=== PATIENT | male | born 1965 | race American Indian/Alaskan Native ===

== ENCOUNTER 2021-07-24 00:28 | Inpatient (IN) | payer MEDICAID ==
--- NOTE | 2021-07-24 00:54 | Emergency Department Report ---
ED Chest Pain HPI - General Stated Complaint: CHEST PAIN Time Seen by Provider: 07/24/21 00:43 Source: patient, EMS - History of Present Illness Initial Comments: Patient is 55 years old morbidly obese male with history of hypertension and diabetes. Patient brought to the emergency room via EMS for evaluation of left- sided chest pain, pressure with no radiation. Patient stated the pain started approximately 1 hour ago waking him up from sleep. Patient denied any shortness of breath, fever or chills. No cough. EKG reviewed by me and sent to Dr. Perez, interventionalist on-call and stated that this is not a STEMI and advised to admit for chest pain work-up. MD Complaint: chest pain -: Sudden, hour(s) (1) Onset: during rest Pain Location: left chest Pain Radiation: none Severity scale (0 -10): 5 Quality: tightness - Related Data Allergies Allergy/AdvReac Type Severity Reaction Status Date / Time No Known Allergies Allergy Unverified 07/24/21 01:25 Heart Score - HEART Score History: Moderately suspicious EKG: Non-specific Age: 45-65 Risk factors: > 3 risk factors or hx of atherosclerotic disease Troponin: < normal limit HEART Score: 5 - EKG Read Time Time EKG Completed: 00:45 EKG Read Time: 00:45 - Critical Actions Critical Actions: 4-6 pts:12-16.6% risk of adverse cardiac event. Should be admitted ED Review of Systems ROS: Stated complaint: CHEST PAIN Other details as noted in HPI Comment: All other systems reviewed and negative Constitutional: denies: chills, fever Respiratory: denies: cough, shortness of breath, SOB with exertion, SOB at rest Cardiovascular: chest pain Gastrointestinal: denies: abdominal pain, nausea, vomiting, diarrhea, constipation, hematemesis Musculoskeletal: denies: back pain Neurological: denies: headache, weakness, numbness, paresthesias, confusion ED Physical Exam - General General appearance: alert, in no apparent distress - Head Head exam: Present: atraumatic, normocephalic, normal inspection - Eye Eye exam: Present: normal appearance - ENT ENT exam: Present: normal exam, normal orophraynx, mucous membranes moist - Neck Neck exam: Present: normal inspection, full ROM. Absent: tenderness, meningismus - Respiratory Respiratory exam: Present: normal lung sounds bilaterally - Cardiovascular Cardiovascular Exam: Present: regular rate, normal rhythm, normal heart sounds - GI/Abdominal GI/Abdominal exam: Present: soft, normal bowel sounds. Absent: distended, tenderness, guarding, rebound, rigid, organomegaly, mass, bruit, pulsatile mass, hernia - Extremities Exam Extremities exam: Present: normal inspection, full ROM, normal capillary refill - Back Exam Back exam: Present: normal inspection, full ROM. Absent: CVA tenderness (R), CVA tenderness (L) - Neurological Exam Neurological exam: Present: alert, oriented X3, CN II-XII intact - Psychiatric Psychiatric exam: Present: normal mood - Skin Skin exam: Present: warm, intact, normal color ED Medical Decision Making - Lab Data Result diagrams: 07/24/21 01:06 07/24/21 01:06 - EKG Data -: EKG Interpreted by Me EKG shows normal: sinus rhythm Rate: normal - EKG Data Interpretation: nonspecific ST-T wave melyssa - Radiology Data Radiology results: report reviewed - Medical Decision Making Patient is 55 years old morbidly obese male with history of hypertension and diabetes. Patient brought to the emergency room via EMS for evaluation of left- sided chest pain, pressure with no radiation. Patient stated the pain started approximately 1 hour ago waking him up from sleep. Patient denied any shortness of breath, fever or chills. No cough. EKG reviewed by me and sent to Dr. Perez, interventionalist on-call and stated that this is not a STEMI and advised to admit for chest pain work-up. Patient remained stable in the ER with a stable vital sign. He stated that his chest pain is much better now. Labs reviewed and is unremarkable including a negative troponin x1. Chest x-ray is unremarkable. I discussed the patient with Dr. Gee, he agreed to admit the patient to medical service for further management. Critical Care Time: Yes Critical care time in (mins) excluding proc time.: 35 Critical care attestation.: If time is entered above; I have spent that time in minutes in the direct care of this critically ill patient, excluding procedure time. ED Disposition Clinical Impression: Unstable angina Disposition: ADMITTED INPATIENT Is pt being admited?: Yes Condition: Stable Instructions: Angina, [id number]
--- NOTE | 2021-07-24 01:13 | XRay Report ---
Chest single view INDICATION: Dyspnea IMPRESSION: Cardiomegaly with mild bilateral interstitial edema. Signer Name: José Antonio Nichols MD Signed: 07/24/2021 1:09 AM Workstation Name: [id number]
[2021-07-24 01:37] LABS: Basophils % (Auto) 0.6 % (0.0-1.8); Eosinophils # (Auto) 0.3 K/mm3 (0.0-0.4); Eosinophils % (Auto) 4.3 % (0.0-4.3); Hematocrit 50.4 % (35.5-45.6); Lymphocytes # (Auto) 1.7 K/mm3 (1.2-5.4); Lymphocytes % (Auto) 21.2 % (13.4-35.0); Mean Corpuscular HGB Conc 32 % (32-34); Mean Corpuscular Volume 95 fl (84-94); Monocytes % (Auto) 12.5 % (0.0-7.3); Platelet Count 238 K/mm3 (140-440); Red Blood Count 5.28 M/mm3 (3.65-5.03); Red Cell Distribution Width 14.7 % (13.2-15.2)
[2021-07-24 01:49] LABS: INR 0.89 (0.87-1.13)
[2021-07-24 01:50] LABS: Partial Thromboplastin Time 25.3 Sec. (24.2-36.6)
[2021-07-24 02:02] LABS: BUN/Creatinine Ratio 16; Blood Urea Nitrogen 16 mg/dL (9-20); Hemolysis Index 56
[2021-07-24 02:04] LABS: Alanine Aminotransferase 25 units/L (7-56); Albumin 4.1 g/dL (3.9-5)
[2021-07-24 02:05] LABS: Bilirubin,Direct < 0.2 mg/dL (0-0.2)
[2021-07-24] MEDS: ASPIRIN 81 MG TAB CHEW PO ONE ×2 (02:10→02:12)
[2021-07-24] MEDS ORDERED: ACETAMINOPHEN 325 MG TAB PO PRN ×2 (02:40→03:30)
--- NOTE | 2021-07-24 02:58 | History and Physical Report ---
History of Present Illness Date of examination: 07/24/21 Date of admission: 07/24/2021 Chief complaint: Chest Pain History of present illness: 55-year-old -[place] male with significant history of hypertension, diabetes mellitus and morbid obesity presenting to the emergency room via EMS with complaint of chest pain. Chest pain was said to be left-sided and felt like pressure lasting for about an hour. Patient states she was sleeping and suddenly woke up with chest pain. He denies any nausea vomiting, no shortness of breath, no fever or chills, no headache or dizziness and no diaphoresis. Patient denies having this type of problem in the past however indicates that he had a stress test about 2 years ago at [facility] which was within normal limits. Work-up in the emergency room today, significant findings were that of hemoglobin of 16 and hematocrit of 50.4. Troponin, chest x-ray and EKG were unremarkable. Work-up findings were discussed with the car mover by the ER physician. Past History Past Medical History: diabetes, hypertension Past Surgical History: No surgical history Social history: no significant social history Family history: no significant family history Medications and Allergies Allergies Allergy/AdvReac Type Severity Reaction Status Date / Time No Known Allergies Allergy Unverified 07/24/21 01:25 Active Meds: Active Medications Acetaminophen (Acetaminophen 325 Mg Tab) 650 mg PO Q4H PRN PRN Reason: Pain MILD(1-3)/Fever >100.5/HODGSON Acetaminophen (Acetaminophen 325 Mg Tab) 650 mg PO Q6H PRN PRN Reason: Pain, Mild (1-3) Aspirin (Aspirin Ec 325 Mg Tab) 325 mg PO QDAY JAMES Dextrose (Dextrose 50% In Water (25gm) 50 Ml Syringe) 50 ml IV Q30MIN PRN; Protocol PRN Reason: Hypoglycemia Magnesium Hydroxide (Magnesium Hydroxide (Mom) Oral Liqd Udc) 30 ml PO Q4H PRN PRN Reason: Constipation Morphine Sulfate (Morphine 2 Mg/1 Ml Inj) 2 mg IV Q4H PRN PRN Reason: Pain, Moderate (4-6) Morphine Sulfate (Morphine 4 Mg/1 Ml Inj) 4 mg IV Q4H PRN PRN Reason: Pain , Severe (7-10) Morphine Sulfate (Morphine 4 Mg/1 Ml Inj) 2 mg IV Q5MIN PRN PRN Reason: Chest Pain unrelieved by NTG Nitroglycerin (Nitroglycerin 0.4 Mg Tab Subl) 0.4 mg SL Q5M PRN PRN Reason: Chest Pain Ondansetron HCl (Ondansetron 4 Mg/2 Ml Inj) 4 mg IV Q8H PRN PRN Reason: Nausea And Vomiting Sodium Chloride (Sodium Chloride 0.9% 10 Ml Flush Syringe) 10 ml IV BID JAMES Sodium Chloride (Sodium Chloride 0.9% 10 Ml Flush Syringe) 10 ml IV PRN PRN PRN Reason: LINE FLUSH Sodium Chloride (Sodium Chloride 0.9% 10 Ml Flush Syringe) 10 ml IV PRN PRN PRN Reason: LINE FLUSH Tramadol HCl (Tramadol 50 Mg Tab) 50 mg PO Q6H PRN PRN Reason: Pain, Moderate (4-6) Review of Systems Constitutional: no fever, no chills Ears, nose, mouth and throat: no nasal congestion, no sore throat Cardiovascular: chest pain, no palpitations Respiratory: no cough, no shortness of breath Gastrointestinal: no abdominal pain, no nausea, no vomiting, no diarrhea Genitourinary Male: no dysuria, no hematuria, no flank pain Musculoskeletal: no neck pain, no low back pain Integumentary: no rash, no pruritis Neurological: no headaches, no confusion Psychiatric: no anxiety, no depression Endocrine: no polyphagia, no polydipsia, no polyuria, no nocturia Exam - Constitutional Vitals: Temp Pulse Resp BP Pulse Ox 71 16 153/74 98 07/24/21 02:15 07/24/21 02:15 07/24/21 02:15 07/24/21 02:24 General appearance: Present: no acute distress, well-nourished, obese - EENT Eyes: Present: PERRL, EOM intact, irregular pupil. Absent: scleral icterus ENT: clear oral mucosa, dentition normal - Neck Neck: Present: supple - Respiratory Respiratory effort: normal Respiratory: bilateral: CTA - Cardiovascular Rhythm: regular Heart Sounds: Present: S1 & S2. Absent: gallop, systolic murmur, diastolic murmur, rub, click - Extremities Extremities: no ischemia, pulses intact, pulses symmetrical, No edema, normal temperature, normal color, Full ROM Peripheral Pulses: within normal limits - Abdominal General gastrointestinal: Present: soft, non-tender, non-distended, normal bowel sounds. Absent: mass - Integumentary Integumentary: Present: clear, warm, dry, normal turgor. Absent: rash - Musculoskeletal Musculoskeletal: strength equal bilaterally - Psychiatric Psychiatric: appropriate mood/affect, intact judgment & insight, memory intact, cooperative - Neurologic Neurologic: CNII-XII intact, no focal deficits, moves all extremities HEART Score - HEART Score History: Moderately suspicious EKG: Non-specific Age: 45-65 Risk factors: > 3 risk factors or hx of atherosclerotic disease Troponin: Troponin T < 0.010 ng/mL (0.00-0.029) 07/24/21 01:06 Troponin: < normal limit HEART Score: 5 - Critical Actions Critical Actions: 4-6 pts:12-16.6% risk of adverse cardiac event. Should be admitted Results - Labs CBC & Chem 7: 07/24/21 01:06 07/24/21 01:06 Labs: Abnormal lab results 07/24/21 Range/Units 01:06 RBC 5.28 H (3.65-5.03) M/mm3 Hgb 16.0 H (11.8-15.2) gm/dl Hct 50.4 H (35.5-45.6) % MCV 95 H (84-94) fl [place] % (Auto) 12.5 H (0.0-7.3) % [place] # (Auto) 1.0 H (0.0-0.8) K/mm3 Assessment and Plan - Patient Problems (1) Chest pain Current Visit: Yes Status: Acute Plan to address problem: Patient admitted and placed on telemetry. We will check serial cardiac enzymes. Patient started on aspirin, sublingual nitroglycerin and IV morphine as needed for chest pain. Await further evaluation by car mover (2) Diabetes mellitus Current Visit: Yes Status: Acute Plan to address problem: Patient placed on sliding scale insulin. We will monitor Accu-Cheks. (3) Hypertension Current Visit: Yes Status: Acute Plan to address problem: We will resume routine home medications and monitor vital signs closely. (4) Morbid obesity with BMI of 40.0-44.9, adult Current Visit: Yes Status: Acute Plan to address problem: Lifestyle modification encouraged. Dietary consult requested. (5) DVT prophylaxis Current Visit: Yes Status: Acute Plan to address problem: Patient placed on subcutaneous heparin. (6) Full code status Current Visit: Yes Status: Acute Plan to address problem: Patient is full code.
[2021-07-24] MEDS ORDERED: traMADol 50 MG TAB PO PRN (03:30)
[2021-07-24] MEDS ORDERED: MAGNESIUM HYDROXIDE (MOM) ORAL LIQD UDC PO PRN (03:30)
[2021-07-24] MEDS ORDERED: DEXTROSE 50% IN WATER (25GM) 50 ML SYRINGE IV PRN (03:30)
[2021-07-24] MEDS ORDERED: ONDANSETRON 4 MG/2 ML INJ IV PRN (03:30)
[2021-07-24] MEDS ORDERED: MORPHINE 4 MG/1 ML INJ IV PRN ×2 (03:30)
[2021-07-24] MEDS ORDERED: MORPHINE 2 MG/1 ML INJ IV PRN (03:30)
[2021-07-24] MEDS ORDERED: NITROGLYCERIN 0.4 MG TAB SUBL SL PRN (03:30)
[2021-07-24] MEDS ORDERED: REGADENOSON 0.4 MG/5 ML INJ IV ONE (08:25)
[2021-07-24] MEDS: INSULIN REGULAR, HUMAN 100 UNITS/1 ML SUB-Q SCH ×3 (11:05→21:53)
[2021-07-24] MEDS ORDERED: HEPARIN 10,000 UNITS/10 ML VIAL IV PRN (12:27)
[2021-07-24 12:31] LABS: Chol/HDL Ratio 3.72 %
[2021-07-24] MEDS ORDERED: HEPARIN/ 0.45% NACL DRIP 25,000 UNIT/500 ML BAG IV SCH ×2 (13:00→18:00)
--- NOTE | 2021-07-24 13:17 | Event Note ---
Date: 07/24/21 Patient seen and examined, positive troponin D/W CARDIOLOGY, STARTED ON HEPARIN DRIP
[2021-07-24] MEDS ORDERED: HEPARIN 10,000 UNITS/10 ML VIAL IV ONE (14:00)
[2021-07-24] MEDS: METOPROLOL TARTRATE 25 MG TAB PO SCH ×2 (14:07→21:45)
[2021-07-24] MEDS: HEPARIN/ 0.45% NACL DRIP 25,000 UNIT/500 ML BAG IV SCH (14:15)
[2021-07-24 15:44] LABS: Hematocrit 52.2 % (35.5-45.6); Hemoglobin 17.2 gm/dl (11.8-15.2)
[2021-07-24 15:58] LABS: INR 0.97 (0.87-1.13); Partial Thromboplastin Time 30.9 Sec. (24.2-36.6)
--- NOTE | 2021-07-24 16:21 | Consultation ---
History of Present Illness Consult date: 07/24/21 Requesting physician: LUISA PINEDA Consult reason: chest pain History of present illness: Chief complaint: Chest Pain This is a 55-year-old -Welsh male with past medical history significant for diabetes, hypertension, hyperlipidemia, sleep apnea (noncompliant with use of CPAP at night), and covid complications that required him to be defibrillated multiple times (per patient report), who presents to the emergency room with complaints of chest pain that began while sleeping around 10 PM last night. He describes the pain as aching and slight pressure. He rates the pain a 9 out of 10. He states the pain felt like food had gotten stuck/gas pains. The pain radiates slightly underneath his left breast and into his left armpit. The pain was constant last night, however patient reports that the pain has now subsided. Patient denies shortness of breath, palpitations, n/v/d, or lower extremity swelling. Patient has a history of smoking.This patient is unknown to our practice. Patient appears to be noncompliant with his medications. Cardiology was consulted for acute chest pain. Past History Past Medical History: diabetes, hypertension Past Surgical History: No surgical history Social history: no significant social history Family history: no significant family history Medications and Allergies Allergies Allergy/AdvReac Type Severity Reaction Status Date / Time No Known Allergies Allergy Unverified 07/24/21 01:25 Home Medications Medication Instructions Recorded Confirmed Last Taken Type AtorvaSTATin [Lipitor] 40 mg PO QHS 07/24/21 07/24/21 Unknown History Metoprolol Xl [Metoprolol 25 mg PO QDAY 07/24/21 07/24/21 Unknown History SUCCINATE ER TAB] Tamsulosin [Flomax] 0.4 mg PO QDAY 07/24/21 07/24/21 Unknown History lisinopriL [Lisinopril] 20 mg PO DAILY 07/24/21 07/24/21 Unknown History metFORMIN [Glucophage] 500 mg PO BID 07/24/21 07/24/21 Unknown History Active Meds: Active Medications Acetaminophen (Acetaminophen 325 Mg Tab) 650 mg PO Q4H PRN PRN Reason: Pain MILD(1-3)/Fever >100.5/HODGSON Aspirin (Aspirin Ec 325 Mg Tab) 325 mg PO QDAY JAMES Atorvastatin Calcium (Atorvastatin 40 Mg Tab) 40 mg PO QHS JAMES Dextrose (Dextrose 50% In Water (25gm) 50 Ml Syringe) 50 ml IV Q30MIN PRN; Protocol PRN Reason: Hypoglycemia Heparin Sodium (Porcine) (Heparin 10,000 Units/10 Ml Vial) 5,000 unit IV Q6H PRN PRN Reason: Anti-Xa Assay < 0.1 units/ml Sodium Chloride (Nacl 0.9% 500 Ml) 500 mls @ 50 mls/hr IV DIRECT JAMES Stop: 07/24/21 22:59 Heparin Sodium/Sodium Chloride (Heparin/ 0.45% Nacl-25,000 Unit/500 Ml) 25,000 unit in 500 mls @ 20 mls/hr IV TITRATE JAMES; Protocol Last Admin: 07/24/21 14:15 Dose: 1,000 units/hr, 20 mls/hr Insulin Human Regular (Insulin Regular, Human 100 Units/1 Ml) 0 units SUB-Q ACHS [facility]; Protocol Last Admin: 07/24/21 16:01 Dose: Not Given Magnesium Hydroxide (Magnesium Hydroxide (Mom) Oral Liqd Udc) 30 ml PO Q4H PRN PRN Reason: Constipation Metoprolol Tartrate (Metoprolol Tartrate 25 Mg Tab) 25 mg PO BID [facility] Last Admin: 07/24/21 14:07 Dose: 25 mg Morphine Sulfate (Morphine 2 Mg/1 Ml Inj) 2 mg IV Q4H PRN PRN Reason: Pain, Moderate (4-6) Morphine Sulfate (Morphine 4 Mg/1 Ml Inj) 4 mg IV Q4H PRN PRN Reason: Pain , Severe (7-10) Morphine Sulfate (Morphine 4 Mg/1 Ml Inj) 2 mg IV Q5MIN PRN PRN Reason: Chest Pain unrelieved by NTG Nitroglycerin (Nitroglycerin 0.4 Mg Tab Subl) 0.4 mg SL Q5M PRN PRN Reason: Chest Pain Ondansetron HCl (Ondansetron 4 Mg/2 Ml Inj) 4 mg IV Q8H PRN PRN Reason: Nausea And Vomiting Sodium Chloride (Sodium Chloride 0.9% 10 Ml Flush Syringe) 10 ml IV BID [facility] Last Admin: 07/24/21 11:00 Dose: 10 ml Sodium Chloride (Sodium Chloride 0.9% 10 Ml Flush Syringe) 10 ml IV PRN PRN PRN Reason: LINE FLUSH Tramadol HCl (Tramadol 50 Mg Tab) 50 mg PO Q6H PRN PRN Reason: Pain, Moderate (4-6) Review of Systems All systems: negative Cardiovascular: chest pain, no palpitations, no edema, no shortness of breath, no dyspnea on exertion, no paroxysmal nocturnal dyspnea, no leg edema Respiratory: no cough Gastrointestinal: no nausea, no vomiting Physical Examination Vital Signs Pulse Ox 99 07/24/21 00:46 General appearance: no acute distress HEENT: Positive: Normocephaly Cardiac: Positive: S1/S2 Lungs: Positive: Decreased Breath Sounds Neuro: Positive: Grossly Intact Abdomen: Positive: Soft, Active Bowel Sounds Male genitourinary: Positive: deferred Skin: Negative: Rash Extremities: Absent: edema Results 07/24/21 14:50 07/24/21 01:06 Cardiac Enzymes 07/24/21 Range/Units 01:06 AST 18 (5-40) units/L Coagulation 07/24/21 07/24/21 Range/Units 01:06 14:50 PT 13.0 14.0 (12.2-14.9) Sec. INR 0.89 0.97 (0.87-1.13) APTT 25.3 30.9 (24.2-36.6) Sec. Lipids 07/24/21 Range/Units 11:17 Triglycerides 92 (2-149) mg/dL Cholesterol 160 (50-199) mg/dL HDL Cholesterol 43 (40-59) mg/dL Cholesterol/HDL Ratio 3.72 % CBC 07/24/21 07/24/21 Range/Units 01:06 14:50 WBC 8.1 (4.5-11.0) K/mm3 RBC 5.28 H (3.65-5.03) M/mm3 Hgb 16.0 H 17.2 H (11.8-15.2) gm/dl Hct 50.4 H 52.2 H (35.5-45.6) % Plt Count 238 183 (140-440) K/mm3 Lymph # (Auto) 1.7 (1.2-5.4) K/mm3 Delta # (Auto) 1.0 H (0.0-0.8) K/mm3 Eos # (Auto) 0.3 (0.0-0.4) K/mm3 Baso # (Auto) 0.0 (0.0-0.1) K/mm3 Comprehensive Metabolic Panel 07/24/21 07/24/21 Range/Units 01:06 01:06 Sodium 143 (137-145) mmol/L Potassium 4.3 (3.6-5.0) mmol/L Chloride 105.1 (98-107) mmol/L Carbon Dioxide 23 (22-30) mmol/L BUN 16 (9-20) mg/dL Creatinine 1.0 (0.8-1.3) mg/dL Glucose 96 (75-100) mg/dL Calcium 9.0 (8.4-10.2) mg/dL Direct Bilirubin < 0.2 (0-0.2) mg/dL Indirect Bilirubin 0.1 mg/dL AST 18 (5-40) units/L ALT 25 (7-56) units/L Alkaline Phosphatase 69 (35-129) units/L Total Protein 7.3 (6.3-8.2) g/dL Albumin 4.1 (3.9-5) g/dL - Imaging and Cardiology Echo: report reviewed EKG: pending, image reviewed EKG interpretations - Telemetry EKG Rhythm: Sinus Rhythm - EKG Sinus rhythms and dysrhythmias: sinus rhythm Assessment and Plan Assessment NSTEMI Angina Hypertension Morbid obesity Hyperlipidemia Sleep apnea History of Covid-19 Cardiographics Initial EKG 07/24/2021 0032-sinus rhythm, rate 79. No acute ischemia per system administration advisor MD. Chest x-ray 07/24/21-cardiomegaly with mild bilateral interstitial edema Echocardiogram-left ventricle: There is mild global hypokinesis of the left ventricle. LVEF is 40 to 45%. Mild diastolic dysfunction is present (impaired relaxation pattern). Pericardium: There is no pericardial effusion. Stress test-final report pending Cath-plan for cath in a.m. Recommendations/plan: -Initial troponin was negative. However, subsequent troponin elevated to 0.259 -Echocardiogram report as above -Patient underwent nuclear Lexiscan MPI this morning. Final results pending. -Given the rise in troponins, in conjunction with chest pain and multiple cardiac risk factors, will plan for cardiac cath in the morning -We will initiate heparin drip per protocol -Check D-dimer -GDMT initiated to include: Aspirin 325 p.o. daily, atorvastatin 40 mg p.o. nightly, metoprolol 25 mg p.o. twice daily -N.p.o. after midnight -Consent obtained. All questions answered and addressed Thank you for this consultation, we will follow along Patient seen in conjunction with Dr. Bear who agrees with the assessment and management of this patient. - Patient Problems (1) NSTEMI (non-ST elevated myocardial infarction) Current Visit: Yes Status: Acute (2) Chest pain Current Visit: Yes Status: Acute (3) Diabetes mellitus Current Visit: Yes Status: Acute (4) Hypertension Current Visit: Yes Status: Acute (5) Morbid obesity with BMI of 40.0-44.9, adult Current Visit: Yes Status: Acute
[2021-07-24] MEDS: SODIUM CHLORIDE 0.9% 500 ML 500 ML IV SCH (21:45)
--- NOTE | 2021-07-25 04:20 | Treadmill Report ---
DATE OF SERVICE: 07/24/2021 NUCLEAR STRESS TEST REFERRING PHYSICIAN: Hospitalist. PROTOCOL: The patient was assessed in postabsorptive state, given 10 mCi of technetium at rest. The patient had rest imaging. The patient underwent Lexiscan stress test per standard protocol. At peak stress, the patient given 26 mCi technetium. Shortly thereafter, the patient had stress imaging. This is a technically difficult study due to body habitus. Raw imaging reveals mild GI artifact, no significant motion artifact. SPECT imaging examined carefully in horizontal long axis, vertical long axis and short axis views. Grossly, there is normal mitral uptake of radioisotope in all port segments. No evidence of a significant fixed or reversible perfusion defect suggestive of prior infarction or ischemia. Gated wall motion was low normal systolic performance, calculated ejection fraction of 53%. No TID. CONCLUSIONS: 1. Technically difficult study due to large body habitus, but grossly no evidence of a significant fixed or reversible perfusion defect suggestive of prior infarction or ischemia. 2. Normal left ventricular systolic performance without evidence of transient ischemic dilatation or stress-induced segmental wall motion abnormalities. TID: [id number] RECEIPT: [id number] SB/ASAD
[2021-07-25 04:52] LABS: Basophils # (Auto) 0.1 K/mm3 (0.0-0.1); Basophils % (Auto) 0.7 % (0.0-1.8); Eosinophils # (Auto) 0.4 K/mm3 (0.0-0.4); Eosinophils % (Auto) 4.4 % (0.0-4.3); Hematocrit 50.6 % (35.5-45.6); Hemoglobin 16.8 gm/dl (11.8-15.2); Lymphocytes # (Auto) 1.7 K/mm3 (1.2-5.4); Lymphocytes % (Auto) 20.8 % (13.4-35.0); Mean Corpuscular HGB Conc 33 % (32-34); Mean Corpuscular Volume 93 fl (84-94); Monocytes # (Auto) 0.9 K/mm3 (0.0-0.8); Monocytes % (Auto) 11.2 % (0.0-7.3); Platelet Count 264 K/mm3 (140-440); Red Blood Count 5.41 M/mm3 (3.65-5.03); Red Cell Distribution Width 14.7 % (13.2-15.2)
[2021-07-25 05:04] LABS: INR 0.9 (0.87-1.13)
[2021-07-25 05:05] LABS: Partial Thromboplastin Time 36.2 Sec. (24.2-36.6)
[2021-07-25 05:07] LABS: Blood Urea Nitrogen 11 mg/dL (9-20); Calcium 9.4 mg/dL (8.4-10.2); Hemolysis Index 4
[2021-07-25 05:08] LABS: BUN/Creatinine Ratio 16
[2021-07-25] MEDS ORDERED: HEPARIN/NS 5000 UNIT/500ML 1,000 ML IR ONE (07:15)
[2021-07-25] MEDS ORDERED: VERAPAMIL 5 MG/2 ML INJ ONE (07:15)
[2021-07-25] MEDS ORDERED: fentaNYL 100 MCG/2 ML INJ ONE (07:15)
[2021-07-25] MEDS ORDERED: MIDAZOLAM 2 MG/2 ML INJ ONE (07:15)
[2021-07-25] MEDS ORDERED: LIDOCAINE (2%) 20 MG/1 ML VIAL 50 ML MDV INFILTRATI ONE (07:15)
[2021-07-25] MEDS ORDERED: HEPARIN 10,000 UNITS/10 ML VIAL ONE (07:15)
[2021-07-25] MEDS ORDERED: NITROGLYCERIN SYRINGE 3 ML ONE (07:16)
[2021-07-25] MEDS: INSULIN REGULAR, HUMAN 100 UNITS/1 ML SUB-Q SCH ×3 (07:30→16:43)
[2021-07-25] MEDS: HEPARIN/ 0.45% NACL DRIP 25,000 UNIT/500 ML BAG IV SCH (08:17)
[2021-07-25] MEDS: SODIUM CHLORIDE 0.9% 500 ML 500 ML IV SCH (08:17)
[2021-07-25] MEDS ORDERED: traMADol 50 MG TAB PO PRN (09:30)
--- NOTE | 2021-07-25 09:31 | Cardiac Catherization Report ---
DATE OF PROCEDURE: 07/25/2021 CARDIAC CATHETERIZATION REFERRING PHYSICIAN: Hospitalist service. INDICATIONS FOR PROCEDURE: The patient is a pleasant 55-year-old -[place] gentleman who presents to the hospital with shortness of breath, found to have a moderate cardiomyopathy, abnormal nuclear stress test with apical ischemia, with abnormal troponin and findings consistent with [id number] myocardial infarction, referred for left heart catheterization. Risks, benefits and potential alternatives explained at length prior to obtaining informed consent. PROCEDURE IN DETAIL: The patient was brought to recyclable materials sorter in a postabsorptive state, prepped and draped in a sterile fashion. Cuauhtemoc's test in right hand is normal. 2 mL of 2% lidocaine used to anesthetize the right wrist. A standard 6-Chinese hydrophilic sheath used to cannulate the right radial artery via modified Seldinger technique. All exchanges performed to exchange a J-tip guidewire. JL3.5 catheter used to engage the left main. No dampening or ventricularization. Cineangiography performed in all projections. JR4 catheter used to cross the aortic valve under fluoroscopic guidance. Left ventriculography performed in 30 HOWE and 30 GUAMANIAN projections via hand injections, catheter flushed. Manual pullback performed with continuous pressure monitoring. Catheter was used to engage the right coronary. Interestingly, we took an angiography of the right coronary cusp and there is no right coronary that arises from the right coronary cusp. The right coronary arises from the left coronary cusp adjacent to the left main. Catheter was then removed from the body of wire and sheath removed. Manual pressure used to achieve hemostasis. DATA: Aortic pressure is 130/90. LV pressure is 130, LVEDP of 15 mmHg. Left ventriculography reveals mild global left ventricular hypokinesis, estimated ejection-fraction of 45-50%. No evidence of aortic stenosis. Normal LVEDP. Right coronary arises from the left coronary cusp. CORONARY ANATOMY: This is a right-dominant system. No significant disease, bifurcates into the posterior descending and posterolateral branches. Again, no disease. Left main without significant disease, bifurcates into left anterior descending, left circumflex. Left circumflex is a moderate-sized vessel, courses AV groove. No significant disease. LAD is a moderate-sized vessel, courses anterior intergroove, wraps around the apex. No significant disease. I directly supervised initiation of moderate sedation with fentanyl and Versed from 8:00 a.m. to 8:36 a.m. No immediate complications. CONCLUSIONS: 1. No angiographic evidence of significant epicardial coronary artery disease in this right-dominant system. 2. 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 3. Mild global left ventricular hypokinesis, estimated ejection-fraction of 45-50%. 4. No evidence of aortic stenosis. 5. Normal LVEDP. The patient is clinically stable, chest pain free. Continue with goal-directed medical therapy. The patient needs weight loss, diet modification. As an outpatient, we would recommend a cardiac CT to better understand the course of the right coronary. Stable cardiac status at this point. Results of the procedure explained to the patient and family. All questions were addressed. TID: [id number] RECEIPT: [id number] ROSA/BRAN
[2021-07-25] MEDS: ASPIRIN EC 325 MG TAB PO SCH (09:43)
[2021-07-25] MEDS: METOPROLOL TARTRATE 25 MG TAB PO SCH ×2 (09:43→22:06)
[2021-07-25] MEDS ORDERED: HYDROcodone/ACETAMINOPHEN 5-325 MG TAB PO PRN (10:00)
--- NOTE | 2021-07-25 17:02 | Progress Note ---
Assessment and Plan This is a 55-year-old -Cyp[place] male with past medical history significant for diabetes, hypertension, hyperlipidemia, sleep apnea (noncompliant with use of CPAP at night), and covid complications that required him to be defibrillated multiple times (per patient report), who presents to the emergency room with complaints of chest pain NSTEMI Angina Hypertension Morbid obesity Hyperlipidemia Sleep apnea History of Covid-19 Echocardiogram07/24/2021-left ventricle: There is mild global hypokinesis of the left ventricle. LVEF is 40 to 45%. Mild diastolic dysfunction is present (impaired relaxation pattern). Pericardium: There is no pericardial effusion. Lexiscan MPI stress test 07/24/2021-technically difficult study due to large body habitus but grossly no evidence of significant fixed or reversible perfusion defect Cardiac cath 07/25/2021-no angiographic evidence of significant epicardial coronary artery disease. 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 Plan: Initial troponin was negative. However, subsequent troponin elevated to 0.259. Cardiac cath results noted above. Patient found to have coronary anatomy. Upon discharge patient will be set up as an outpatient for CCTA D-dimer noted to be elevated however patient had nuclear stress test yesterday mostly 48 hours before having VQ scan. V/Q scheduled for a.m. Continue GDMT initiated to include: Aspirin , atorvastatin 40 mg p.o. nightly, metoprolol 25 mg p.o. twice daily Patient seen in conjunction with Dr. Bear who agrees with the assessment and management of this patient. - Patient Problems (1) Chest pain Current Visit: Yes Status: Acute (2) Hypertension Current Visit: Yes Status: Acute (3) Morbid obesity with BMI of 40.0-44.9, adult Current Visit: Yes Status: Acute (4) NSTEMI (non-ST elevated myocardial infarction) Current Visit: Yes Status: Acute Subjective Date of service: 07/25/21 Principal diagnosis: Chest pain Interval history: Patient for cardiac cath this a.m. Sinus with PVCs on monitor Objective Vital Signs Temp Pulse Pulse Resp BP BP Pulse Ox 07/25/21 15:19 106 H 18 97 07/25/21 11:03 144/88 07/25/21 11:01 154/90 07/25/21 10:46 116/74 07/25/21 10:30 125/79 07/25/21 10:16 140/85 07/25/21 10:00 158/93 07/25/21 09:45 98.3 F 74 18 157/92 93 07/25/21 06:35 106 H 07/25/21 04:06 98.9 F 66 18 119/93 97 07/25/21 00:41 98.8 F 88 17 177/107 99 07/25/21 00:21 98.6 F 60 20 147/91 99 07/24/21 21:45 136/77 07/24/21 20:24 97 07/24/21 19:22 97.8 F 64 20 136/77 98 07/24/21 18:37 60 20 120/78 95 07/24/21 18:35 97.8 F 66 18 142/91 97 07/24/21 18:01 58 L 20 120/78 94 07/24/21 17:51 58 L 22 95 07/24/21 17:40 59 L 22 131/85 94 07/24/21 17:30 62 20 131/85 94 07/24/21 17:20 11 L 131/85 97 07/24/21 17:10 61 18 131/85 98 - Physical Examination General: No Apparent Distress HEENT: Positive: Normocephaly Neck: Positive: trachea midline Cardiac: Positive: Reg Rate and Rhythm Lungs: Positive: Normal Breath Sounds Neuro: Positive: Grossly Intact Abdomen: Positive: Soft, Active Bowel Sounds Skin: Negative: Rash Extremities: Absent: edema - Labs and Meds Coagulation 07/25/21 Range/Units 04:09 PT 13.1 (12.2-14.9) Sec. INR 0.90 (0.87-1.13) APTT 36.2 (24.2-36.6) Sec. CBC 07/25/21 Range/Units 04:09 WBC 8.2 (4.5-11.0) K/mm3 RBC 5.41 H (3.65-5.03) M/mm3 Hgb 16.8 H (11.8-15.2) gm/dl Hct 50.6 H (35.5-45.6) % Plt Count 264 (140-440) K/mm3 Lymph # (Auto) 1.7 (1.2-5.4) K/mm3 [place] # (Auto) 0.9 H (0.0-0.8) K/mm3 Eos # (Auto) 0.4 (0.0-0.4) K/mm3 Baso # (Auto) 0.1 (0.0-0.1) K/mm3 Comprehensive Metabolic Panel 07/25/21 Range/Units 04:09 Sodium 140 (137-145) mmol/L Potassium 4.0 (3.6-5.0) mmol/L Chloride 103.1 (98-107) mmol/L Carbon Dioxide 25 (22-30) mmol/L BUN 11 (9-20) mg/dL Creatinine 0.7 L (0.8-1.3) mg/dL Glucose 95 (75-100) mg/dL Calcium 9.4 (8.4-10.2) mg/dL - Imaging and Cardiology EKG: pending, image reviewed Nuclear stress test: report reviewed Echo: report reviewed Cardiac cath: report reviewed - Telemetry EKG Rhythm: Sinus Rhythm - EKG Sinus rhythms and dysrhythmias: sinus rhythm Ventricular dysrhythmias: ventricular premature com
--- NOTE | 2021-07-25 17:12 | Progress Note ---
Assessment and Plan Assessment and plan: 55-year-old -Sudanese male with significant history of hypertension, diabetes mellitus and morbid obesity presenting to the emergency room via EMS with complaint of chest pain. Chest pain was said to be left-sided and felt like pressure lasting for about an hour. Patient states she was sleeping and suddenly woke up with chest pain. He denies any nausea vomiting, no shortness of breath, no fever or chills, no headache or dizziness and no diaphoresis. Patient denies having this type of problem in the past however indicates that he had a stress test about 2 years ago at [facility] which was within normal limits. Work-up in the emergency room today, significant findings were that of h emoglobin of 16 and hematocrit of 50.4. Troponin, chest x-ray and EKG were unremarkable. (1) Chest pain, NSTEMI Current Visit: Yes Status: Acute Plan to address problem: Initial troponin negative but the second positive. Patient started on aspirin, sublingual nitroglycerin and IV morphine as needed f or chest pain. Cardiology consulted and evaluating/managing Echocardiogram07/24/2021-left ventricle: There is mild global hypokinesis of the left ventricle. LVEF is 40 to 45%. Mild diastolic dysfunction is present (impaired relaxation pattern). Pericardium: There is no pericardial effusion. Lexiscan MPI stress test 07/24/2021-technically difficult study due to large body habitus but grossly no evidence of significant fixed or reversible perfusion defect Cardiac cath 07/25/2021-no angiographic evidence of significant epicardial coronary artery disease. 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 borderline D-dimer elevation D-dimer noted to be elevated however patient had nuclear stress test yesterday mostly 48 hours before having VQ scan. V/Q scheduled for a.m. (2) Diabetes mellitus Current Visit: Yes Status: Acute Plan to address problem: Patient placed on sliding scale insulin. We will monitor Accu-Cheks. (3) Hypertension Current Visit: Yes Status: Acute Plan to address problem: We will resume routine home medications and monitor vital signs closely. (4) Morbid obesity with BMI of 40.0-44.9, adult Current Visit: Yes Status: Acute Plan to address problem: Lifestyle modification encouraged. Dietary consult requested. (5) obesity, poor compliance with CPAP Patient advised strict compliance with CPAP to evaluate serious complications DVT prophylaxis Current Visit: Yes Status: Acute Plan to address problem: Patient placed on subcutaneous heparin. Full code status Current Visit: Yes Status: Acute Plan to address problem: Patient is full code. Disposition: Discharge deferred as cardiology is recommending VQ scan tomorrow which cannot be performed today. Spoke with the patient and cardiology. History Interval history: Patient underwent left heart cath which was unremarkable. Patient is currently asymptomatic, denies chest pains, palpitations or dyspnea. Discharge deferred as per cardio recommendations, scheduled for Lexiscan tomorrow. Hospitalist Physical - Constitutional Vitals: Temp Pulse Resp BP Pulse Ox 98.3 F 106 H 18 144/88 97 07/25/21 09:45 07/25/21 15:19 07/25/21 15:19 07/25/21 11:03 07/25/21 15:19 General appearance: Present: no acute distress, obese (Extremely obese) - EENT Eyes: Present: PERRL, EOM intact ENT: other (Oropharynx crowded.) - Neck Neck: Present: supple - Respiratory Respiratory effort: normal Respiratory: bilateral: CTA - Cardiovascular Rhythm: regular - Extremities Extremities: No edema - Abdominal General gastrointestinal: soft, non-tender - Integumentary Integumentary: Absent: rash - Psychiatric Psychiatric: appropriate mood/affect - Neurologic Neurologic: no focal deficits, moves all extremities HEART Score - HEART Score EKG: Non-specific Age: 45-65 Risk factors: > 3 risk factors or hx of atherosclerotic disease Troponin: Troponin T 0.259 ng/mL (0.00-0.029) H* D 07/24/21 11:17 Troponin: < normal limit - Critical Actions Critical Actions: 4-6 pts:12-16.6% risk of adverse cardiac event. Should be admitted Results - Labs CBC & Chem 7: 07/25/21 04:09 07/25/21 04:09 Labs: Laboratory Last Values WBC 8.2 K/mm3 (4.5-11.0) 07/25/21 04:09 RBC 5.41 M/mm3 (3.65-5.03) H 07/25/21 04:09 Hgb 16.8 gm/dl (11.8-15.2) H 07/25/21 04:09 Hct 50.6 % (35.5-45.6) H 07/25/21 04:09 MCV 93 fl (84-94) 07/25/21 04:09 MCH 31 pg (28-32) 07/25/21 04:09 MCHC 33 % (32-34) 07/25/21 04:09 RDW 14.7 % (13.2-15.2) 07/25/21 04:09 Plt Count 264 K/mm3 (140-440) 07/25/21 04:09 Lymph % (Auto) 20.8 % (13.4-35.0) 07/25/21 04:09 [place] % (Auto) 11.2 % (0.0-7.3) H 07/25/21 04:09 Eos % (Auto) 4.4 % (0.0-4.3) H 07/25/21 04:09 Baso % (Auto) 0.7 % (0.0-1.8) 07/25/21 04:09 Lymph # (Auto) 1.7 K/mm3 (1.2-5.4) 07/25/21 04:09 [place] # (Auto) 0.9 K/mm3 (0.0-0.8) H 07/25/21 04:09 Eos # (Auto) 0.4 K/mm3 (0.0-0.4) 07/25/21 04:09 Baso # (Auto) 0.1 K/mm3 (0.0-0.1) 07/25/21 04:09 Seg Neutrophils % 62.9 % (40.0-70.0) 07/25/21 04:09 Seg Neutrophils # 5.2 K/mm3 (1.8-7.7) 07/25/21 04:09 PT 13.1 Sec. (12.2-14.9) 07/25/21 04:09 INR 0.90 (0.87-1.13) 07/25/21 04:09 APTT 36.2 Sec. (24.2-36.6) 07/25/21 04:09 D-Dimer 245.33 ng/mlDDU (0-234) H 07/24/21 14:50 Heparin Anti-Xa Level 0.16 U.I./ml (0.3-0.7) L 07/25/21 04:09 Sodium 140 mmol/L (137-145) 04/13/22 04:09 Potassium 4.0 mmol/L (3.6-5.0) 07/25/21 04:09 Chloride 103.1 mmol/L (98-107) 07/25/21 04:09 Carbon Dioxide 25 mmol/L (22-30) 07/25/21 04:09 Anion Gap 16 mmol/L 07/25/21 04:09 BUN 11 mg/dL (9-20) 07/25/21 04:09 Creatinine 0.7 mg/dL (0.8-1.3) L 07/25/21 04:09 Estimated GFR > 60 ml/min 07/25/21 04:09 BUN/Creatinine Ratio 16 % 07/25/21 04:09 Glucose 95 mg/dL (75-100) 07/25/21 04:09 POC Glucose 142 mg/dL (70-105) H 07/25/21 11:04 Calcium 9.4 mg/dL (8.4-10.2) 07/25/21 04:09 Total Bilirubin 0.30 mg/dL (0.1-1.2) 07/24/21 01:06 Direct Bilirubin < 0.2 mg/dL (0-0.2) 07/24/21 01:06 Indirect Bilirubin 0.1 mg/dL 07/24/21 01:06 AST 18 units/L (5-40) 07/24/21 01:06 ALT 25 units/L (7-56) 07/24/21 01:06 Alkaline Phosphatase 69 units/L (35-129) 07/24/21 01:06 Troponin T 0.259 ng/mL (0.00-0.029) H* D 07/24/21 11:17 NT-Pro-B Natriuret Pep 66.96 pg/mL (0-900) 07/24/21 01:06 Total Protein 7.3 g/dL (6.3-8.2) 07/24/21 01:06 Albumin 4.1 g/dL (3.9-5) 07/24/21 01:06 Albumin/Globulin Ratio 1.3 % 07/24/21 01:06 Triglycerides 92 mg/dL (2-149) 07/24/21 11:17 Cholesterol 160 mg/dL (50-199) 07/24/21 11:17 LDL Cholesterol Direct 89 mg/dL (50-130) 07/24/21 11:17 HDL Cholesterol 43 mg/dL (40-59) 07/24/21 11:17 Cholesterol/HDL Ratio 3.72 % 07/24/21 11:17 Lipase 21 units/L (13-60) 07/24/21 01:06 Blood Type A POSITIVE 07/25/21 04:09 Antibody Screen Negative 07/25/21 04:09 [place]/IV: Voiding Method Toilet Active Medications - Current Medications Current Medications: Generic Name Dose Route Start Last Admin Trade Name Freq PRN Reason Stop Dose Admin Acetaminophen 650 mg 07/24/21 03:30 Acetaminophen 325 Mg Tab PO Q4H PRN Pain MILD(1-3)/Fever >100.5/HODGSON Hydrocodone Bitart/Acetaminophen 1 each 07/25/21 10:00 Hydrocodone/Acetaminophen 5-325 Mg Tab PO Q4H PRN Pain, Moderate (4-6) Aspirin 325 mg 07/25/21 10:00 07/25/21 09:43 Aspirin Ec 325 Mg Tab PO 325 mg QDAY JAMES Administration Atorvastatin Calcium 40 mg 07/24/21 22:00 07/24/21 21:45 Atorvastatin 40 Mg Tab PO 40 mg QHS JAMES Administration Dextrose 50 ml 07/24/21 03:30 Dextrose 50% In Water (25gm) 50 Ml Syringe IV Q30MIN PRN Hypoglycemia Protocol Heparin Sodium/Sodium Chloride 25,000 unit in 500 mls @ 20 mls/hr 07/24/21 18:00 07/25/21 05:59 Heparin/ 0.45% Nacl-25,000 Unit/500 Ml IV 1,450 units/hr TITRATE JAMES 29 mls/hr Titration Protocol 1,000 UNITS/HR Insulin Human Regular 0 units 07/24/21 11:30 07/25/21 16:43 Insulin Regular, Human 100 Units/1 Ml SUB-Q Not Given ACHS JAMES Protocol Magnesium Hydroxide 30 ml 07/24/21 03:30 Magnesium Hydroxide (Mom) Oral Liqd Udc PO Q4H PRN Constipation Metoprolol Tartrate 25 mg 07/24/21 14:30 07/25/21 09:43 Metoprolol Tartrate 25 Mg Tab PO 25 mg BID JAMES Administration Morphine Sulfate 2 mg 07/24/21 03:30 Morphine 2 Mg/1 Ml Inj IV Q4H PRN Pain, Moderate (4-6) Morphine Sulfate 4 mg 07/24/21 03:30 Morphine 4 Mg/1 Ml Inj IV Q4H PRN Pain , Severe (7-10) Morphine Sulfate 2 mg 07/24/21 03:30 Morphine 4 Mg/1 Ml Inj IV Q5MIN PRN Chest Pain unrelieved by NTG Nitroglycerin 0.4 mg 07/24/21 03:30 Nitroglycerin 0.4 Mg Tab Subl SL Q5M PRN Chest Pain Ondansetron HCl 4 mg 07/24/21 03:30 Ondansetron 4 Mg/2 Ml Inj IV Q8H PRN Nausea And Vomiting Sodium Chloride 10 ml 07/24/21 10:00 07/25/21 09:43 Sodium Chloride 0.9% 10 Ml Flush Syringe IV 10 ml BID JAMES Administration Sodium Chloride 10 ml 07/24/21 03:30 Sodium Chloride 0.9% 10 Ml Flush Syringe IV PRN PRN LINE FLUSH Tramadol HCl 50 mg 07/24/21 03:30 Tramadol 50 Mg Tab PO Q6H PRN Pain, Moderate (4-6) Tramadol HCl 50 mg 07/25/21 09:30 Tramadol 50 Mg Tab PO Q4H PRN Pain, Mild (1-3)
--- NOTE | 2021-07-26 08:03 | Nuclear Medicine Report ---
NUCLEAR MEDICINE PERFUSION SCAN INDICATION: elevated d dimer CORRELATION: Chest x-ray performed 07/24/2021 RADIOPHARMACEUTICAL: Perfusion: 5.5 mCi Tc-99m MAA given IV FINDINGS: Perfusion images show symmetric and uniform radiotracer distribution throughout bilateral lung zones with no evidence of unmatched segmental perfusion defects. Normal cardiac silhouette. IMPRESSION: Very low probability perfusion scan for pulmonary embolism. Signer Name: All Montoya Jr, MD Signed: 07/26/2021 7:58 AM Workstation Name: [id number]
[2021-07-26 09:24] VITALS: BP 140/82
[2021-07-26 09:55] LABS: Hemoglobin 16.2 gm/dl (11.8-15.2)
[2021-07-26] MEDS: ASPIRIN EC 325 MG TAB PO SCH (10:16)
[2021-07-26] MEDS: METOPROLOL TARTRATE 25 MG TAB PO SCH (10:16)
[2021-07-26] MEDS: INSULIN REGULAR, HUMAN 100 UNITS/1 ML SUB-Q SCH ×2 (10:17→13:30)
[2021-07-26] MEDS ORDERED: LISINOPRIL 20 MG TAB PO SCH (12:00)
--- NOTE | 2021-07-26 13:02 | Discharge Summary ---
Providers - Providers Date of Admission: 07/24/21 02:40 Date of discharge: 07/26/21 Attending physician: REAGAN HERNANDEZ 07/24/21 Consult to Cardiac Rehabilitation [CONS] Routine Reason For Exam: Phase I 07/24/21 01:14 Consult to Physician [CONS] Stat Comment: Consulting Provider: KHURRAM SMALLS Physician Instructions: Reason For Exam: Acute chest pain 07/25/21 09:23 Consult to Cardiac Rehabilitation [CONS] Routine Reason For Exam: Cardiac Rehab Evaluation Primary care physician: CL[facility] REPAIRER Hospitalization Reason for admission: Chest pain Condition: Stable Pertinent studies: Left heart cardiac catheterization Hospital course: 55-year-old -British male with significant history of hypertension, diabetes mellitus and morbid obesity presenting to the emergency room via EMS with complaint of chest pain. Chest pain was said to be left-sided and felt like pressure lasting for about an hour. Patient states she was sleeping and suddenly woke up with chest pain. He denies any nausea vomiting, no shortness of breath, no fever or chills, no headache or dizziness and no diaphoresis. Patient denies having this type of problem in the past however indicates that he had a stress test about 2 years ago at [facility] which was within normal limits. Work-up in the emergency room today, significant findings were that of hemoglobin of 16 and hematocrit of 50.4. Troponin, chest x-ray and EKG were unremarkable. (1) Chest pain, NSTEMI Current Visit: Yes Status: Acute Plan to address problem: Initial troponin negative but the second positive. Cardiology consulted Status post [facility] yesterday Findings reviewed Normal coronaries Echocardiogram07/24/2021-left ventricle: There is mild global hypokinesis of the left ventricle. LVEF is 40 to 45%. Mild diastolic dysfunction is present (impaired relaxation pattern). Pericardium: There is no pericardial effusion. Lexiscan MPI stress test 07/24/2021-technically difficult study due to large body habitus but grossly no evidence of significant fixed or reversible perfusion defect Cardiac cath 07/25/2021-no angiographic evidence of significant epicardial coronary artery disease. 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 borderline D-dimer elevation D-dimer noted to be elevated however patient had nuclear stress test yesterday mostly 48 hours before having VQ scan. VQ scan: Low probability for PE (2) Diabetes mellitus Current Visit: Yes Status: Acute Plan to address problem: Continue home medications (3) Hypertension Current Visit: Yes Status: Acute Plan to address problem: We will resume routine home medications (4) Morbid obesity with BMI of 40.0-44.9, adult Current Visit: Yes Status: Acute Plan to address problem: Lifestyle modification encouraged. Dietary consult requested. (5) obesity hypoventilation syndrome, poor compliance with CPAP Patient advised strict compliance with CPAP to evaluate serious complications Disposition: 30 STILL A PATIENT Final Discharge Diagnosis (Prints w/discharge instructions): Non-ST elevated LA. Type 2 diabetes. Hypertension. Morbid obesity Time spent for discharge: 36 min Core Measure Documentation - Palliative Care Palliative Care/ Comfort Measures: Not Applicable - Core Measures Any of the following diagnoses?: acute LA - Acute LA Discharge Requirements Aspirin at discharge: Yes KIMBERLY/ARB for LVSD if EF <40%: Yes Beta isaac at discharge: Yes Statin for LDL = or >100 mg/dl on DC: Yes Exam - Constitutional Vitals: Temp Pulse Resp BP Pulse Ox 97.9 F 73 20 140/82 98 07/26/21 09:19 07/26/21 09:19 07/26/21 10:54 07/26/21 09:19 07/26/21 10:54 General appearance: Present: no acute distress, well-nourished, obese - EENT Eyes: Present: PERRL, EOM intact ENT: hearing intact - Neck Neck: Present: supple, normal ROM - Respiratory Respiratory effort: normal Respiratory: bilateral: CTA, diminished - Cardiovascular Rhythm: regular Heart Sounds: Present: S1 & S2 - Extremities Extremities: No edema - Abdominal General gastrointestinal: Present: soft, non-tender Male genitourinary: Present: deferred - Rectal Rectal Exam: deferred - Integumentary Integumentary: Present: clear - Musculoskeletal Musculoskeletal: strength equal bilaterally - Psychiatric Psychiatric: appropriate mood/affect - Neurologic Neurologic: no focal deficits Plan Activity: advance as tolerated Weight Bearing Status: Full Weight Bearing Diet: regular, low fat, low cholesterol, low salt, diabetic Follow up with: PRIMARY CARE, [Primary Care Provider] - 3-5 Days ANN MARIE ANGUIANO MD [Staff Physician] - 7 Days Prescriptions: Aspirin EC [Ecotrin] 325 mg PO QDAY #30 tablet
--- NOTE | 2021-07-26 14:46 | Progress Note ---
Assessment and Plan This is a 55-year-old -Macanese male with past medical history significant for diabetes, hypertension, hyperlipidemia, sleep apnea (noncompliant with use of CPAP at night), and covid complications that required him to be defibrillated multiple times (per patient report), who presents to the emergency room with complaints of chest pain NSTEMI Angina Hypertension Morbid obesity Hyperlipidemia Sleep apnea History of Covid-19 Echocardiogram07/24/2021-left ventricle: There is mild global hypokinesis of the left ventricle. LVEF is 40 to 45%. Mild diastolic dysfunction is present (impaired relaxation pattern). Pericardium: There is no pericardial effusion. Lexiscan MPI stress test 07/24/2021-technically difficult study due to large body habitus but grossly no evidence of significant fixed or reversible perfusion defect Cardiac cath 07/25/2021-no angiographic evidence of significant epicardial coronary artery disease. 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 Plan: Cardiac cath results noted above. Patient found to have coronary anatomy. Upon discharge patient will be set up as an outpatient for CCTA Patient VQ scan negative Continue GDMT initiated to include: Aspirin , atorvastatin 40 mg p.o. nightly, metoprolol 25 mg p.o. twice daily Resume outpatient lisinopril Patient remains chest pain-free. Cardiac status otherwise stable for discharge Patient is scheduled for follow-up appointment with Dr. Bear, [facility] heart specialists, on 08/24/2021 at 2 PM in our [place] location. Phone #[phone] Patient seen in conjunction with Dr. Bear who agrees with the assessment and management of this patient. - Patient Problems (1) Chest pain Status: Acute (2) Hypertension Status: Acute (3) Morbid obesity with BMI of 40.0-44.9, adult Status: Acute (4) NSTEMI (non-ST elevated myocardial infarction) Status: Acute Subjective Date of service: 07/26/21 Principal diagnosis: Chest pain Interval history: Patient sitting in chair in no acute distress Sinus 70s with no events on monitor Objective Vital Signs Temp Pulse Pulse Resp BP Pulse Ox 07/26/21 10:54 20 98 07/26/21 09:19 97.9 F 73 18 140/82 95 07/26/21 03:29 99.0 F 65 19 147/94 95 04/14/22 03:00 20 98 07/25/21 23:51 98.4 F 63 19 131/87 95 07/25/21 22:06 72 145/95 07/25/21 20:00 74 07/25/21 19:36 97.8 F 72 20 141/95 93 07/25/21 16:07 98.8 F 18 173/104 07/25/21 15:19 106 H 18 97 - Physical Examination General: No Apparent Distress HEENT: Positive: Normocephaly Neck: Positive: trachea midline Cardiac: Positive: Reg Rate and Rhythm Lungs: Positive: clear to auscultation, Normal Breath Sounds Neuro: Positive: Grossly Intact Abdomen: Positive: Soft, Active Bowel Sounds Skin: Negative: Rash Extremities: Absent: edema - Labs and Meds CBC 07/26/21 Range/Units 08:37 Hgb 16.2 H (11.8-15.2) gm/dl Hct 51.0 H (35.5-45.6) % Plt Count 243 (140-440) K/mm3 - Imaging and Cardiology EKG: pending, image reviewed Echo: report reviewed Cardiac cath: report reviewed - EKG Sinus rhythms and dysrhythmias: sinus rhythm Ventricular dysrhythmias: ventricular premature com
--- NOTE | 2021-07-26 19:54 | Electrocardiograph Report ---
[facility] Test Date: 2021-07-24 Test Time: 00:32:28 Pat Name: SHALINI ORTIZ Department: Room: A472 Gender: M Senior Air Director: BARRERA : 1965 Requested By: LUISA PINEDA Order Number: [id number] Reading MD: Coco Tobin Measurements Intervals [place] Rate: 79 P: 53 CT: 177 QRS: -16 QRSD: 95 T: 66 QT: 382 QTc: 439 Interpretive Statements Sinus rhythm INFERIOR INFARCT, ACUTE Anteroseptal infarct, age indeterminate No previous ECG available for comparison Electronically Signed On 07-26-2021 19:53:56 EDT by Coco Tobin
--- NOTE | 2021-07-26 20:15 | Electrocardiograph Report ---
[facility] Test Date: 2021-07-25 Test Time: 07:01:46 Pat Name: SHALINI ORTIZ Department: Room: A472 1 Gender: M Rouge Presser: BONITA : 1965 Requested By: NILESH CAMPOS Order Number: [id number] Reading MD: Coco Tobin Measurements Intervals [place] Rate: 87 P: 60 [place]: 169 QRS: 38 QRSD: 93 T: 16 QT: 354 QTc: 427 Interpretive Statements Sinus rhythm Old inferior infarct Compared to ECG 07/24/2021 00:32:[address] elevation now less evident Electronically Signed On 07-26-2021 20:15:29 EDT by Coco Tobin
--- NOTE | 2021-07-26 20:19 | Electrocardiograph Report ---
[facility] Test Date: 2021-07-25 Test Time: 10:44:29 Pat Name: SHALINI ORTIZ Department: Room: A472 1 Gender: M Tobacco Classer: BONITA : 1965 Requested By: GI GAY Order Number: [id number] Reading MD: Coco Tobin Measurements Intervals [place] Rate: 74 P: 61 [place]: 187 QRS: 45 QRSD: 102 T: 0 QT: 390 QTc: 432 Interpretive Statements Sinus rhythm Compared to ECG 07/25/2021 07:01:46 No significant changes Electronically Signed On 07-26-2021 20:19:18 EDT by Coco Tobin
== END 2021-07-26 14:34 | disposition home or self-care (01) | DRG 281 ==
LOC: ED 00:28 → 4A 02:40
PROVIDERS: ADMIT Internal Medicine Geriatric Medicine; ATTEND Internal Medicine
PROC: 4A023N7 Measurement of Cardiac Sampling and Pressure, Left Heart, Percutaneous Approach (ICD-10-PCS; principal; 2021-07-25)
PROC: B2111ZZ Fluoroscopy of Multiple Coronary Arteries using Low Osmolar Contrast (ICD-10-PCS; 2021-07-25)
PROC: B2151ZZ Fluoroscopy of Left Heart using Low Osmolar Contrast (ICD-10-PCS; 2021-07-25)
DX: I21.4 Non-ST elevation (NSTEMI) myocardial infarction (principal); Z68.41 Body mass index [BMI] 40.0-44.9, adult; E66.2 Morbid (severe) obesity with alveolar hypoventilation; I10 Essential (primary) hypertension; E78.5 Hyperlipidemia, unspecified; E11.9 Type 2 diabetes mellitus without complications; Z71.3 Dietary counseling and surveillance; Z86.16 Personal history of COVID-19
CPT/HCPCS: 36415; 71045; 78452; 78580; 80048; 80061; 80076; 82962; 83690; 83880; 84484; 85014; 85018; 85025; 85049; 85379; 85520; 85610; 85730; 86850; 86900; 86901; 93005; 93017; 93306; 93458; G0378; J1815; J3490; A9502; A9540; C1894; C8929; J1644; J2250; J2785; J3010; J7040; Q9967